=== PATIENT | male | born 1995 | race Caucasian/White ===

== ENCOUNTER 2023-09-07 14:00 | Outpatient (CLI) | payer BC, SELFPAY ==
--- NOTE | ~2023-09-07 | US_ITS ---
EXAMINATION: US art doppler w press LE BI DATE: 09/07/2023 14:57 INDICATION: Coldness to the toes. Hypercholesterolemia. TECHNIQUE: Segmental pressures and plethysmographic and Doppler waveforms of the brachial and lower e xtremity arteries were obtained. COMPARISON: None. FINDINGS: Right and left brachial artery pressures of 130 mm Hg and 145 mm Hg, respectively, are concordant (no rmal difference <= 30 mmHg). The left high-thigh pressure index is 1.21 (normal > 1.2). The right hig h thigh pressure index was unable to be obtained due to inability to occlude the vessel. The right ankle-brachial index (ELLEN) is 1.07 (normal >= 0.9-1). The right great toe-brachial index (T BI) is 0.41 (normal >= 0.6-0.8). The right lower extremity segmental pressure gradients are increased between the right [id number] popliteal artery and the right posterior tibial artery (normal grad ients <= 20-30 mmHg between adjacent levels on the same leg or the same levels on the two legs). Marcelle rial waveforms are triphasic with brisk systolic upstrokes at the right common femoral, superficial f emoral, popliteal and posterior tibial arteries and biphasic with brisk systolic upstrokes at the rig ht dorsalis pedis artery. The left ELLEN is 1.04. The left TBI is 0.46. The left lower extremity segmental pressure gradients are normal. Arterial waveforms are triphasic with brisk systolic upstrokes at the left common femoral, s uperficial femoral, popliteal and posterior tibial arteries and biphasic with brisk systolic upstroke s at the left dorsalis pedis artery. IMPRESSION: 1. Mild arterial occlusive disease to the bilateral lower limbs with normal bilateral ABIs but mildly decreased bilateral TBIs Reviewed, dictated and finalized at [facility] IMPRESSION: 1. Mild arterial occlusive disease to the bilateral lower limbs with normal [place] ateral ABIs but mildly decreased bilateral TBIs
== END 2023-09-07 14:01 | disposition home or self-care (01) ==
PROVIDERS: PCP Physician Assistant; Visit Provider Physician Assistant
DX: R20.9 Unspecified disturbances of skin sensation (principal); R23.8 Other skin changes; I73.9 Peripheral vascular disease, unspecified
CPT/HCPCS: 93923